=== PATIENT | male | born 1975 | race Caucasian/White ===

== ENCOUNTER 2019-06-02 00:56 | Emergency (ER) | payer OTHER, BC ==
[~2019-06-02] VITALS: Ht 188 cm; Wt 140.2 kg
[2019-06-02 01:03] VITALS: Ht 188 cm; Wt 140.2 kg
[2019-06-02 05:45] VITALS: BP 123/77
== END 2019-06-02 05:45 | disposition home or self-care (01) ==
LOC: ED 00:56
DX: M54.5 Low back pain (principal)
CPT/HCPCS: J1885